=== PATIENT | male | born 1960 | race Caucasian/White ===

== ENCOUNTER 2017-09-20 12:04 | Emergency (ER) | payer MEDICAID, OTHER ==
[2017-09-20] MEDS ORDERED: ceFAZolin 1 GM VIAL(*) 1 GM in NS 0.9% 50 ML* 50 ML IVPB ONE (12:32)
[2017-09-20] MEDS ORDERED: Ondansetron INJ* 2 MG/ML VIAL IV ONE (12:32)
[2017-09-20] MEDS ORDERED: Morphine INJ* 4 MG/ML 1 ML SYRINGE (NEW SYRINGE VERSION) IV ONE (12:32)
[2017-09-20] MEDS ORDERED: NS 0.9% 50 ML* 50 ML ONE (12:36)
[2017-09-20] MEDS ORDERED: Bupivacaine 0.25% SDV* 30 ML INJ ONE (12:55)
[2017-09-20] MEDS ORDERED: Tetan/Diph/Pertus SYR(Tdap)* 0.5 ML SYR(BOOSTRIX) use SYR IM ONE (12:58)
--- NOTE | 2017-09-20 13:23 | ED ---
Laceration/Wound HPI - HPI Summary HPI Summary: 57-year-old male presents with left hand injury after getting caught in a table saw today. He states that he felt that it hit his bone. Has laceration to his left thumb and index and middle finger. He is unable to completely extend his left index finger. He had previous injury to the thumb a couple years ago that resulted in laceration of such. He is not sure when his last tetanus was. He is not diabetic. 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 Pain is 10 out of 10. - History of Current Complaint Stated Complaint: FINGER LAC Time Seen by Provider: 09/20/17 12:32 Pain Intensity: 0 - Allergy/Home Medications Allergies/Adverse Reactions: Allergies Allergy/AdvReac Type Severity Reaction Status Date / Time No Known Allergies Allergy Verified 09/20/17 12:07 Home Medications: Home Medications Cholecalciferol TAB* [Vitamin D TAB*] 2,000 unit PO DAILY 09/20/17 [History Confirmed 09/20/17] Lisinopril/HCTZ 20/12.5(NF) [Zestoretic 20/12.5(NF)] 1 tab PO DAILY 09/20/17 [ History Confirmed 09/20/17] Simvastatin TAB(NF) [Zocor(NF)] 10 mg PO DAILY 09/20/17 [History Confirmed 09/20] amLODIPine TAB* [Norvasc 5 mg TAB*] 10 mg PO DAILY 09/20/17 [History Confirmed 09/20/17] PMH/Surg Hx/FS Hx/Imm Hx Endocrine/Hematology History: Denies: Hx Anticoagulant Therapy, Hx Diabetes Cardiovascular History: Reports: Hx Hypertension - Immunization History Immunizations Up to Date: Yes Infectious Disease History: No Infectious Disease History: Denies: Traveled Outside the [place] in Last 30 Days - Family History Known Family History: Positive: Hypertension - Social History Alcohol Use: Daily Alcohol Amount: 2-3 drinks Substance Use Type: Reports: None Smoking Status (MU): Never Smoked Tobacco Review of Systems Negative: Fever Negative: Chest Pain Negative: Shortness Of Breath Positive: Other - finger lacerations All Other Systems Reviewed And Are Negative: Yes Physical Exam Triage Information Reviewed: Yes Vital Signs On Initial Exam: Initial Vitals Temp Pulse Resp BP Pulse Ox 97.7 F 114 18 178/94 96 09/20/17 12:08 09/20/17 12:08 09/20/17 12:08 09/20/17 12:08 09/20/17 12:08 Vital Signs Reviewed: Yes Appearance: Positive: Well-Appearing Skin: Positive: Warm, Dry, Other - left thumb pad maceration, left index middle phalanx 4cm through tendon at PIP, finger flex at PIP unable to extend, middle phalanx laceration 4cm side of phlanax and macerated at tip Head/Face: Positive: Normal Head/Face Inspection Eyes: Positive: Normal, Conjunctiva Clear Respiratory/Lung Sounds: Positive: Clear to Auscultation, Breath Sounds Present Cardiovascular: Positive: Normal, RRR Musculoskeletal: Positive: Limited @ - left index unable to extend at PIP, Other - capillary refill<2 secs, sensation grossly intact, good pulses Neurological: Positive: Normal Psychiatric: Positive: Normal Procedures - Splinting Location: left hand Hand-Made Type: orthoglass Splint: radial gutter Pre-Proc Neuro Vasc Exam: normal Post-Proc Neuro Vasc Exam: normal - Laceration/Wound Repair 1 Location: Other - left middle Description: Irregular Anesthesia: Digital, 1.0%, Marcaine Length, Depth and Shape: 5cm by 1/2cm and avulsion tip Irrigated w/ Saline (ccs): 1,000 Laceration/Wound Explored: no foreign body removed Closure: Single Layer Suture Type: Prolene - 4-0 Number of Sutures: 8 Layer Closure?: No Sterile Dressing Applied?: Yes - surgicel applied to avulsion, xeroform, guaze and coband 2 Location: Other - left index Description: Irregular Anesthesia: Local, 1.0%, Marcaine Length, Depth and Shape: 4cm by 1cm Irrigated w/ Saline (ccs): 1,000 Laceration/Wound Explored: no foreign body removed Closure: Single Layer Suture Type: Prolene - 4-0 Number of Sutures: 7 Layer Closure?: No Sterile Dressing Applied?: Yes - xeroform, telfa, guaze, and coband 3 Location: Other - left thumb Description: Irregular Anesthesia: Local, 1.0%, Marcaine Length, Depth and Shape: macerated area 2cm by 3cm Irrigated w/ Saline (ccs): 1,000 Laceration/Wound Explored: no foreign body removed Closure: Single Layer Suture Type: Prolene - 4-0 Number of Sutures: 3 Layer Closure?: No Sterile Dressing Applied?: Yes - xeroform, guaze cobsumit Diagnostics - Vital Signs Vital Signs Temp Pulse Resp BP Pulse Ox 09/20/17 13:00 89 139/79 95 09/20/17 12:38 18 09/20/17 12:30 90 135/80 96 09/20/17 12:18 101 95 09/20/17 12:17 142/73 09/20/17 12:08 97.7 F 114 18 178/94 96 - Laboratory Lab Results: Lab Results 09/20/17 Range/Units 12:14 Blood Type O Positive Antibody Screen Pending Lab Statement: Any lab studies that have been ordered have been reviewed, and results considered in the medical decision making process. - Radiology hand Xray Interpretation: Positive (See Comments) - IMPRESSION: Compound fracture distal phalanx third finger. Assessment of the second finger is limited due to flexed position. Suggestion of a soft tissue defect /laceration at the dorsum of the second finger at level of the proximal interphalangeal joint; correlate with clinical assessment including for potential extensor tendon injury. Radiology Interpretation Completed By: Radiologist Laceration Repair Course/Dx - Course Course Of Treatment: 57-year-old male presents with left hand injury after getting caught in a table saw today. He states that he felt that it hit his bone. Has laceration to his left thumb and index and middle finger. He is unable to completely extend his left index finger. He had previous injury to the thumb a couple years ago that resulted in laceration of such. He is not sure when his last tetanus was. He is not diabetic. 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 Pain is 10 out of 10. on exam pad of left thumb is partially avulsed. cleaned and placed 3 sutures in area and placed pressure dressing. index finger is flexed at PIP and is unable to extend such so is tendon involvement there. placed 7 sutures to loose close it to stop bleeding in 4cm laceration at PIP and along with middle index splinted in extension with orthoglass. middle finger has avulsion at tip of middle finger with compound fracture that could not close so placed surgicel and placed in pressure dressing. below on left middle finger is a 5cm irregular laceration that closed with [address] skaggs says should see dr mckeon this week for tendon repair. gave tetanus and gram of ancef and will have continue pain medication and keflex. patient understand and agrees with plan. - Differential Dx Differental Diagnoses: Abrasion, Avulsion, Laceration, Tendon Laceration, Other - open fracture - Clinical Impression Provider Diagnoses: Open fracture of distal phalangeal tuft, Laceration of multiple sites of left hand and fingers Discharge - Sign-Out/Discharge Documenting (check all that apply): Discharge - Discharge Plan Condition: Good Disposition: HOME Prescriptions: Cephalexin CAP* [Keflex CAP*] 500 mg PO BID #13 cap oxyCODONE/Acetamin 5/325 MG* [Percocet 5/325 TAB*] 1 tab PO Q6H PRN #16 tab MDD 4 PRN Reason: Pain Patient Education Materials: Care For Your Stitches (ED), Finger Fracture (ED) Referrals: Grant Morales MD [Medical Doctor] - Orion Pope MD [Primary Care Provider] - Ally Alanis MD [Medical Doctor] - Additional Instructions: Leave splint on area till seen by ortho Keep dry Change dressing in two days Call Friday to follow up with ortho: dr Morales or Annabelle need to be seen by Take Tylenol or ibuprofen for pain every 6 hours, use narcotic for break through pain every 6 hours Take keflex twice a day for 7 days Return to ED or primary for suture removal in 10-14 days Return to ED if develop signs of infection such as fever, spreading redness, or pus formation - Billing Disposition and Condition Condition: GOOD Disposition: HOME
--- NOTE | 2017-09-20 13:31 | RAD ---
INDICATION: Laceration to the LEFT fingers; table saw injury. COMPARISON: No relevant prior exams available on the [facility] [place]. TECHNIQUE: AP, lateral, and oblique views LEFT hand. REPORT: Overlying bandage limits image quality specifically for assessment for retained foreign bodies. Soft tissue laceration at the tip of the third finger with associated fracture of the distal phalanx involving the tuft and diaphysis. Assessment of the second finger is limited due to flexed position. Suggestion of a soft tissue defect at the dorsum of the second finger at level of the proximal interphalangeal joint; correlate with clinical assessment. No additional fracture evident. Normal articular alignment. IMPRESSION: Compound fracture distal phalanx third finger. Assessment of the second finger is limited due to flexed position. Suggestion of a soft tissue defect /laceration at the dorsum of the second finger at level of the proximal interphalangeal joint; correlate with clinical assessment including for potential extensor tendon injury.
[2017-09-20 14:58] VITALS: BP 122/75
== END 2017-09-20 15:19 | disposition home or self-care (01) ==
LOC: ED 12:04
DX: S62.633B Displaced fracture of distal phalanx of left middle finger, initial encounter for open fracture (principal); S61.211A Laceration without foreign body of left index finger without damage to nail, initial encounter; S61.213A Laceration without foreign body of left middle finger without damage to nail, initial encounter; S61.012A Laceration without foreign body of left thumb without damage to nail, initial encounter; W29.8XXA Contact with other powered hand tools and household machinery, initial encounter; Y92.9 Unspecified place or not applicable
CPT/HCPCS: 12004; 36415; 86850; 86900; 86901; 90715; 96374; 96375; 99283; J0690; J2270; J2405

== ENCOUNTER 2017-10-28 07:44 | Day surgery (SDC) | payer OTHER ==
--- NOTE | 2017-10-22 15:19 | HP ---
PREOPERATIVE HISTORY AND PHYSICAL: DATE OF SURGERY/ADMISSION: 10/28/17 [facility] DATE OF OFFICE VISIT/ENCOUNTER: 10/20/17 ATTENDING SURGEON: Ally Alanis MD * (DICTATED BY IRVING EISENBERG) PROCEDURE: Left index finger proximal interphalangeal joint fusion. HISTORY OF PRESENT ILLNESS: This is a 57-year-old male who sustained injury from a table saw in early September 2017. It injured his left hand. He subsequently had surgical intervention to address his injuries. He had a left index finger wound exploration and a left middle finger wound closure with an advancement flap. During surgery, it was discovered that the left index finger extensor tendon was completely obliterated and the articular surface at the PIP joint had been essentially removed by the saw. Because of the large cartilage and extensor tendon defect, we have been waiting for wounds to heal and as planned are now proceeding with further surgical intervention for the index finger in the form of a PIP joint fusion. The patient has consented to proceed. PAST MEDICAL HISTORY: 1. Hypertension. 2. Dyslipidemia. 3. History of heart murmur. PAST SURGICAL HISTORY: 1. Left index finger wound exploration in September 2017. 2. Left middle finger wound closure in September 2017. CURRENT MEDICATIONS: 1. Simvastatin 10 mg. 2. Lisinopril. 3. Hydrochlorothiazide 20/12.5 daily. 4. Amlodipine 10 mg daily. 5. Vitamin D 2000 International Units daily. 6. Zinc 50 mg daily. 7. Selenium 200 mcg daily. 8. Multivitamin one daily. ALLERGIES: No known drug allergies. FAMILY MEDICAL HISTORY: Hypertension and cancer. SOCIAL HISTORY: The patient is employed as a general house worker. He denies smoking. He does not use recreational drugs. He drinks alcohol on occasion. REVIEW OF SYSTEMS: General: Negative for fevers, chills, or night sweats, unexplained weight loss/gain. No known anesthesia problems. HEENT: Negative for headache, lightheadedness, syncopal episodes, visual changes. Integumentary : Negative for current complaint; however, wounds are healed. No sign of infection. Cardiothoracic: Negative for hypertension, chest pain, palpitations , edema. Respiratory: Negative for shortness of breath with exertion, chronic cough, COPD. GI: Negative for nausea, vomiting, diarrhea, constipation, GERD. : Negative for nocturia, urinary frequency, urgency, history of UTIs, or kidney problems. Musculoskeletal: Positive for current complaint. Neurological : Negative for paresthesias, numbness, history of seizure, stroke, poor balance. Endocrine: Negative for diabetes and thyroid issues. Hematologic: Negative for easy bruising, anemia, bleeding disorders, history of DVT. Infectious Disease: Negative for history of MRSA, hepatitis C, HIV. PHYSICAL EXAMINATION GENERAL: Well-developed, well-nourished 57-year-old male, in no acute distress. VITAL SIGNS: Height 5 feet 11 inches, weight 198 pounds. Pulse rate 68, blood pressure 140/82. HEENT: Normocephalic, atraumatic. Pupils are equal, round, and reactive to light and accommodation. Throat is clear. NECK: Supple. No palpable lymph nodes. PULMONARY: Lungs are clear to auscultation bilaterally. No wheezes, rales, or rhonchi. CARDIOVASCULAR: Regular rate and rhythm. S1, S2. Murmur detected on auscultation. No rubs or gallops. ABDOMEN: Positive bowel sounds, soft, nontender. NEUROLOGICAL: Alert and oriented x3. Cranial nerves II through XII are intact. Sensation is intact to light touch. MUSCULOSKELETAL: On exam of his left index finger, the wound has healed. There is no sign of infection. He has no active extension at the PIP joint. Neurovascular function is intact. IMAGING STUDIES: X-rays of the left index finger show evidence of bony injury to the PIP joint with missing bone dorsally at the base of the middle phalanx. IMPRESSION: Status post table saw injury, left index finger. PLAN: The patient is scheduled to undergo a left index finger PIP joint fusion with Dr. Alanis on 10/28/17. He will return to the office 10 days postop for followup and suture removal. He has some supply of Percocet left over from his previous surgeries in September. This he will plan on using for postoperative pain management. IRVING EISENBERG [id number]/[facility] #: [id number] MTDD
[~2017-10-28 07:44] MED LIST: Buffered Lidocaine 0.9% SYRIN* 5 ML/SYR SYRINGE INTRADERM ONE; Sodium Citrate/Citric Acid* 15 ML UDC ONE; Sodium Citrate/Citric Acid* 15 ML UDC PO ONE
[2017-10-28] MEDS ORDERED: Naloxone* 0.4 MG/ML 1 ML VIAL IV PRN (08:48)
[2017-10-28] MEDS ORDERED: fentaNYL* 50 MCG/ML 2 ML VIAL (100 MCG VIAL) ONE (08:50)
[2017-10-28] MEDS ORDERED: Midazolam* 1 MG/ML 5 ML VIAL (5 MG) ONE (08:50)
[2017-10-28] MEDS ORDERED: ceFAZolin 2 GM PREMIX (*) 2 GM/50 ML BAG IVPB ONE (08:57)
[2017-10-28] MEDS ORDERED: Lidocaine 1% INJ* 10 MG/ML 30 ML SDV ONE (08:58)
[2017-10-28] MEDS ORDERED: Lidocaine 2% PF * 5 ML VIAL ONE (09:25)
[2017-10-28] MEDS ORDERED: Propofol* 10 MG/ML 20 ML BTL IV PUSH ONE (09:25)
[2017-10-28 10:24] VITALS: BP 114/80
--- NOTE | 2017-10-29 13:39 | OP ---
DATE OF OPERATION: 10/28/17 - [facility] DATE OF : 58 SURGEON: Ally Alanis MD. DEHYDROGENATION CONVERTER OPERATOR: IRVING Nicholas. ANESTHESIA: Local MAC. PRE-OP DIAGNOSES: Table saw injury to the PIP joint of the left index finger with complete destruction of the extensor tendon and with near complete cartilage loss of the middle phalanx. POST-OP DIAGNOSES: Table saw injury to the PIP joint of the left index finger with complete destruction of the extensor tendon and was near complete cartilage loss of the middle phalanx. OPERATIVE PROCEDURE: Left index finger PIP fusion. ESTIMATED BLOOD LOSS: Zero. TOURNIQUET TIME: About 30 minutes. INDICATIONS FOR PROCEDURE: Fran is a 57-year-old man, who injured his left hand with a table saw. The tablesaw blade went through his PIP joint completely lacerating his extensor tendon and there was a significant loss of articular cartilage of the proximal and middle phalanx. He presents for PIP fusion of the left index finger. DESCRIPTION OF PROCEDURE: The patient was brought to the operating room, was given a sedation anesthetic and a digital block with 10 cc of 1% plain lidocaine. The skin of his left hand and forearm was prepped and draped in the usual sterile fashion. The hand and forearm were exsanguinated and the tourniquet elevated to 250 mmHg. A longitudinal incision was made over the PIP joint. We dissected sharply through the capsule, but the extensor tendon was split longitudinally and the collateral ligaments were incised. With flexion I was then able to visualize the complete PIP joint and with a sagittal saw a 15- degree angle was created on the proximal phalanx and the remainder of the cartilage was removed. The cartilage remaining on the middle phalanx was also removed and then the bones were opposed. I attempted to place a mini Acutrak screw from the proximal phalanx into the middle phalanx but the dorsal cortex broke and so then K-wires were used instead. Crossed K-wires were driven through the proximal phalanx into the middle phalanx with the bone in good apposition. There was a little bit of dorsal bone loss, so some of the proximal bone that had been removed with the use of this bone graft. The wound was irrigated and the extensor tendon was repaired with 5-0 nylon suture. The skin edges were reapproximated with 4-0 nylon suture, and the wound was dressed with Xeroform, 4x4, Webril, and a volar splint. The patient tolerated the procedure well and was brought to the recovery room in good condition. [id number]/[facility] #: [id number] CAROL
--- NOTE | 2017-10-29 17:27 | RAD ---
CPT II Codes: G9500 INDICATION: Pain at the left index finger proximal interphalangeal joint TECHNIQUE: Intraoperative fluoroscopy was provided during percutaneous pinning with the intention to fuse the proximal interphalangeal joint. FINDINGS: 2 spot films depict 2 percutaneous pins spanning the proximal interphalangeal joint of the left index finger. Fluoroscopy time: 1.17 seconds IMPRESSION: As above.
== END 2017-10-28 10:37 | disposition home or self-care (01) ==
LOC: OREAST 07:44
PROVIDERS: ATTEND Orthopaedic Surgery
DX: S61.211A Laceration without foreign body of left index finger without damage to nail, initial encounter (principal); I10 Essential (primary) hypertension; E78.5 Hyperlipidemia, unspecified; R01.1 Cardiac murmur, unspecified; W27.0XXA Contact with workbench tool, initial encounter
CPT/HCPCS: 76000; A9270-GY; C1713; C1776; J0690; J2250; J2704; J3010